=== PATIENT | male | born 1935 | race Hispanic/Latino ===

== ENCOUNTER 2020-04-13 14:00 | Emergency (ER) | payer MEDICARE, OTHER ==
[~2020-04-13] VITALS: Ht 170.2 cm; Wt 79.4 kg
[2020-04-13] MEDS ORDERED: ACETAMINOPHEN 325 MG TAB PO ONE (14:45)
--- NOTE | 2020-04-13 16:47 | Diagnostic Imaging Report ---
EXAMINATION: CHEST SINGLE (PORTABLE) INDICATION: Pneumonia COMPARISON: None FINDINGS: LINES/TUBES:None LUNGS:The lungs are well-inflated. Mild left basilar patchy opacity. PLEURA:No pleural effusion or pneumothorax. MEDIASTINUM:The cardiomediastinal silhouette appears normal in size and shape. BONES/SOFT TISSUES:No acute osseous injury. ABDOMEN:No free air under the diaphragm. IMPRESSION: Mild left basilar patchy opacity may represent subsegmental atelectasis or mild pneumonitis. Signed by: Rosina Segura MD on 04/13/2020 4:43 PM
--- NOTE | 2020-04-13 16:57 | Emergency Department Note ---
History of Present Illnes History of Present Illness Chief Complaint: COVID PUI History of Present Illness This is a 85 year old male arrived to the ED for cough, fever and malaise. Pt admits that and son have the same symptoms. Historian: Patient Arrival Mode: Car Independent Crop Consultant Required: No Onset (how long ago): day(s) Severity: mild Duration (how long): day(s) Timing of current episode: intermittent Chronicity: new Relieving factors: none Exacerbating factors: none Past Medical/Family History Physician Review I have reviewed the patient's past medical and family history. Any updates have been documented here. Past Medical History Recent Fever: Yes Clinical Suspicion of Infectio: Yes New/Unexplained Change in Ment: No Social History Smoking Cessation: Never Smoker Counseling Performed: No Review of Systems Review of Systems Constitutional: Reports no symptoms, Reports chills, Reports fever EENTM: Reports no symptoms Cardiovascular: Reports no symptoms Respiratory: Reports as per HPI, Reports cough, Reports pain with cough, Reports dyspnea Gastrointestinal: Reports no symptoms Genitourinary: Reports no symptoms Musculoskeletal: Reports no symptoms Integumentary: Reports no symptoms Neurological: Reports no symptoms Psychological: Reports no symptoms Endocrine: Reports no symptoms Hematological/Lymphatic: Reports no symptoms Physical Exam Related Data Allergies: Coded Allergies: No Known Allergies (Unverified , 04/13/20) Triage Vital Signs Vital Signs Date Time Temp Pulse Resp B/P (MAP) Pulse Ox O2 Delivery O2 Flow Rate FiO2 04/13/20 14:42 100.1 95 18 138/66 96 Room Air Vital signs reviewed: Yes Physical Exam CONSTITUTIONAL Constitutional: Present well-developed, Present well-nourished HENT HENT: Present normocephalic, Present atraumatic, Present oropharynx clear/moist, Present nose normal HENT L/R: Present left ext ear normal, Present right ext ear normal EYES Eyes: Reports PERRL, Reports conjunctivae normal NECK Neck: Present ROM normal PULMONARY Pulmonary: Present effort normal, Present breath sounds normal CARDIOVASCULAR Cardiovascular: Present regular rhythm, Present heart sounds normal, Present capillary refill normal, Present normal rate GASTROINTESTINAL Abdominal: Present soft, Present nontender, Present bowel sounds normal GENITOURINARY Genitourinary: Present exam deferred SKIN Skin: Present warm, Present dry MUSCULOSKELETAL Musculoskeletal: Present ROM normal NEUROLOGICAL Neurological: Present alert, Present oriented x 3, Present no gross motor or sensory deficits PSYCHOLOGICAL Psychological: Present mood/affect normal, Present judgement normal Results Laboratory Laboratory Laboratory Tests Test 04/13/20 14:48 Imaging Imaging results reviewed: Yes Impressions IMPRESSION: Mild left basilar patchy opacity may represent subsegmental atelectasis or mild pneumonitis. Assessment & Plan Medical Decision Making MDM 85-year-old well-appearing male arrives to the ED with complaints of cough fever loss of taste and smell. Patient is clinically presenting with signs and symptoms consistent with Covid 19. Patient informed he is positive until proven otherwise. Patient's oxygen saturation remained 99% even on exertion, no evidence of tachypnea or dyspnea noted in the ED. In the light of the Covid pandemic, disaster medicine care was given- pt recevied a chest x-ray and covid-19 swab. Pt did not meet criteria for hospital admission and this was discussed. Pt is not having any signs or symptoms of respiratory distress and not requiring supplemental O2. Pt was discharged on decadron and z-pack. Pt has a strong support system as an outpatient and discharge home with [facility] clinical decision making. Spoke present length about the importance of sleeping on his stomach and rotating from side to side. Z-Rojas given, signs and symptoms for return discussed. Assessment & Plan Final Impression: (1) COVID-19 Depart Disposition: HOME, SELF-CARE Last Vital Signs Date Time Temp Pulse Resp B/P (MAP) Pulse Ox O2 Delivery O2 Flow Rate FiO2 04/13/20 14:42 100.1 95 18 138/66 96 Room Air Medications in the ED Acetaminophen 650 mg ONCE ONCE PO Last administered on 04/13/20at 16:44; Admin Dose 650 MG; Start 04/13/20 at 14:45; Stop 04/13/20 at 15:06; Status BLAYNE STOKES DO Apr 13, 2020 16:57
== END 2020-04-13 16:50 | disposition home or self-care (01) ==
LOC: ER 14:42
DX: U07.1 COVID-19 (principal); R50.9 Fever, unspecified; R05 Cough; R53.81 Other malaise
CPT/HCPCS: 71045; 87635; 99283